=== PATIENT | male | born 1980 | race Caucasian/White ===

== ENCOUNTER 2022-03-03 00:17 | Emergency (ER) | payer MEDICAID ==
[~2022-03-03] VITALS: Ht 172.7 cm; Wt 83.0 kg
[2022-03-03 00:41] VITALS: BP 137/86
== END 2022-03-03 05:00 | disposition left against medical advice (07) ==
LOC: ER 00:17
DX: Z53.21 Procedure and treatment not carried out due to patient leaving prior to being seen by health care provider (principal)